=== PATIENT | female | born 1940 | race Caucasian/White ===

== ENCOUNTER 2016-09-01 05:39 | Day surgery (SDC) | payer MEDICARE, OTHER ==
--- NOTE | ~2016-09-01 | EGD ---
EGD REPORT [facility] [address] [place] [address] NAME: REYNA ALANIZ : 38 STATUS : REG [facility]#: [id number] AGE: 75 ADM/REG DATE : 09/01/16 MR#: [id number] REPORT SERV DATE: 09/01/16 DICTATED BY: ADAM POLLARD DATE: 09/01/16 REPORT STATUS : Draft TRANSCRIBED BY: [employer] DATE: 09/01/16 Endoscopy Center Patient Name: Reyna Alaniz Date of : 1940 Attending MD: ADAM POLLARD MD Procedure Date No Time: 09/01/2016 Procedure: Upper GI endoscopy Indications: Epigastric abdominal pain, Heartburn, Suspected esophageal reflux Referring MD: Selvin Miranda Medicines: as per anesthesia Complications: No immediate complications. Procedure: After obtaining informed consent, the endoscope was passed under direct vision. Throughout the procedure, the patient's blood pressure, pulse, and oxygen saturations were monitored continuously. The GIF [id number] [id number] was introduced through the mouth, and advanced to the third part of duodenum. The upper GI endoscopy was accomplished without difficulty. The patient tolerated the procedure. Findings: The examined esophagus was normal. Localized mild inflammation characterized by erythema was found in the gastric antrum. Biopsies were taken with a cold forceps for histology. The cardia and gastric fundus were normal on retroflexion. The examined duodenum was normal. Impression: - Normal esophagus. - Gastritis. Biopsied. - Normal examined duodenum. Recommendation: - Await pathology results. - Follow an antireflux regimen. - Continue present medications. Procedure Code(s): --- Professional --- 09288, Esophagogastroduodenoscopy, flexible, transoral; with biopsy, single or multiple Diagnosis Code(s): --- Professional --- K29.70, Gastritis, unspecified, without bleeding R10.13, Epigastric pain R12, Heartburn EGD REPORT [facility] [address] [place] [address] NAME: REYNA ALANIZ : [birth year] STATUS : REG [facility] [place] PAT#: [id number] AGE: 75 ADM/REG DATE : 09/01/16 MR#: [id number] REPORT SERV DATE: 09/01/16 DICTATED BY: ADAM POLLARD. DATE: 09/01/16 REPORT STATUS : Draft TRANSCRIBED BY: [employer] DATE: 09/01/16 CPT copyright 2013 [employer]. All rights reserved. The codes documented in this report are preliminary and upon certified medical records coder review may be revised to meet current compliance requirements. ADAM POLLARD MD 09/01/2016 7:25 AM This report has been signed electronically. Number of Addenda: 0 Note Initiated On: 09/01/2016 7:02 AM Scope Withdrawal Time 0 hours 0 minutes 0 seconds [address] [id number]
--- NOTE | ~2016-09-01 | EGD ---
EGD REPORT [facility] [address] [place] [address] NAME: REYNA ALANIZ : [birth year] STATUS : REG [facility]#: [id number] AGE: 75 ADM/REG DATE : 09/01/16 MR#: [id number] REPORT SERV DATE: 09/01/16 DICTATED BY: ADAM POLLARD DATE: 09/01/16 REPORT STATUS : Draft [facility]: [facility] DATE: 09/01/16 Endoscopy Center Patient Name: Reyna Alaniz Date of : 1940 Attending MD: ADAM POLLARD MD Procedure Date No Time: 09/01/2016 Procedure: Colonoscopy Indications: High risk colon cancer surveillance: Personal history of colonic polyps, FH of Colon Cancer - 1st degree relative, FH of Colon Cancer -distant relative Referring MD: Selvin Miranda Medicines: as per anesthesia Complications: No immediate complications. Procedure: After I obtained informed consent, the scope was passed under direct vision. Throughout the procedure, the patient's blood pressure, pulse, and oxygen saturations were monitored continuously. The PCF [id number] was introduced through the anus and advanced to the cecum, identified by appendiceal orifice and ileocecal valve. The colonoscopy was performed without difficulty. The patient tolerated the procedure. The quality of the bowel preparation was fair. Findings: The perianal and digital rectal examinations were normal. A few small and large-mouthed diverticula were found in the sigmoid colon, in the descending colon and in the transverse colon. Internal hemorrhoids were found during endoscopy and were mild. Impression: - Diverticulosis in the sigmoid colon, in the descending colon and in the transverse colon. - Internal hemorrhoids. Recommendation: - Continue present medications. Procedure Code(s): --- Professional --- 40186, Colonoscopy, flexible, proximal to splenic flexure; diagnostic, with or without collection of specimen(s) by brushing or washing, with or without colon decompression (separate procedure) Diagnosis Code(s): --- Professional --- K64.8, Other hemorrhoids K57.30, Diverticulosis of large intestine without perforation or abscess without bleeding EGD REPORT [facility] [address] [place] [address] [address] [id number] NAME: REYNA ALANIZ : [birth year] STATUS : REG [facility] PAT#: [id number] AGE: 75 ADM/REG DATE : 09/01/16 MR#: [id number] REPORT SERV DATE: 09/01/16 DICTATED BY: ADAM POLLARD. DATE: 09/01/16 REPORT STATUS : Draft TRANSCRIBED BY: [employer] DATE: 09/01/16 Z86.010, Personal history of colonic polyps Z80.0, Family history of malignant neoplasm of digestive organs CPT copyright 2013 [employer]. All rights reserved. The codes documented in this report are preliminary and upon service dog trainer review may be revised to meet current compliance requirements. ADAM POLLARD MD 09/01/2016 7:52 AM This report has been signed electronically. Number of Addenda: 0 Note Initiated On: 09/01/2016 7:01 AM Scope Withdrawal Time 0 hours 7 minutes 4 seconds [address] [facility] [address] [id number]
[~2016-09-01 05:39] MED LIST: ACET500CAP PO; ADALAT CC90 MG PO; ALBUTEROL5 INH; ASAB PO; ATRONASAL3 NAS; CAT1 PO; COUMADIN4 MG PO; DSS PO; DUONEB INH; EXFORGE 10/320 PO; EXFORGE1 TA3 PO; EYE INJECTION; FLONASE NAS; FLOVENT110 INH; FLOVENT220 INH; FOLIC ACID PO; FOLIC PO; HALF81 PO; HUMALOG SC; HUMALOGPEN SC; HYCODAN1 M1 PO; IMDUR30 PO; IMDUR60 PO; JANTOVEN4 MG PO; KLOR-CON20 MEQ PO; L40 PO; LANTUS SC; LIPITOR PO; LIPITOR40 PO; LOVENOX; LUMIGAN OPH; LUMIGAN2.5 ML OPH; MAGNEBIND PO; MAGOX4 PO; MAX25 PO; MEDROLPAK4 PO; MIRALAXPKT PO; MUCINEX1200 MG PO; MUCINEX600 MG PO; NATURA2 OP; NEXIUM40 PO; OCEAN NAS; P10 PO; P20 PO; PEP20 PO; PROAIR HFA INH; PROVENTSOL INH; PROVHFA INH; SODIUM CHLOR3 %; SPIRIVA INH; SPIRIVA RESPIMAT INH; SYMBICORT 160/41 INH INH; TARKA1 TA1 PO; TEARS NATURA OP; TEARS PLUS OPH; TESS PO; ULTRAM50 PO; VENTOLIN HFA INH; VIBRATAB100 MG PO; X25 PO; X5 PO; XALAT OPH; Z-PAK PO; ZOCOR40 PO
[2016-09-01 06:21] LABS: INTERNATIONAL NORMAL RATI 1.2 UNITS (-); PROTIME (NOT ORD) 14.8 SEC (12.0-14.5)
[2016-12-28] MEDS ORDERED: FOLIC PO (09:59)
[2016-12-28] MEDS ORDERED: LIPITOR40 PO (09:59)
[2016-12-28] MEDS ORDERED: EXFORGE1 TA3 PO (09:59)
[2016-12-28] MEDS ORDERED: X5 PO (10:00)
[2016-12-28] MEDS ORDERED: SYMBICORT 160/41 INH INH (10:00)
[2016-12-28] MEDS ORDERED: NEXIUM40 PO (10:00)
[2016-12-28] MEDS ORDERED: IMDUR30 PO (10:00)
[2016-12-28] MEDS ORDERED: PROAIR HFA INH (10:01)
[2016-12-28] MEDS ORDERED: ALBUTEROL0.083 % INH (10:01)
[2016-12-28] MEDS ORDERED: L40 PO (10:01)
[2016-12-28] MEDS ORDERED: LANTUS SC (10:03)
[2016-12-28] MEDS ORDERED: HUMALOG SC (10:03)
[2016-12-28] MEDS ORDERED: JANTOVEN1 MG PO (10:04)
[2016-12-28] MEDS ORDERED: JANTOVEN4 MG PO (10:04)
[2016-12-28] MEDS ORDERED: LUMIGAN2.5 ML OPH (10:04)
[2017-01-01] MEDS ORDERED: ASAB PO (14:15)
[2017-01-01] MEDS ORDERED: SPIRIVA INH (14:16)
== END 2016-09-01 23:59 | disposition home health service (06) ==
LOC: DMU 05:39
PROVIDERS: Anesthesiology; Internal Medicine Gastroenterology
PROC: 0DB68ZX Excision of Stomach, Via Natural or Artificial Opening Endoscopic, Diagnostic (ICD-10-PCS; principal; 2016-09-01 07:00)
PROC: 0DJD8ZZ Inspection of Lower Intestinal Tract, Via Natural or Artificial Opening Endoscopic (ICD-10-PCS; 2016-09-01 07:00)
DX: Z12.11 Encounter for screening for malignant neoplasm of colon (principal); K57.30 Diverticulosis of large intestine without perforation or abscess without bleeding; K64.8 Other hemorrhoids; E66.01 Morbid (severe) obesity due to excess calories; E11.9 Type 2 diabetes mellitus without complications; I11.0 Hypertensive heart disease with heart failure; E78.00 Pure hypercholesterolemia, unspecified; I48.91 Unspecified atrial fibrillation; I27.2 Other secondary pulmonary hypertension; I50.9 Heart failure, unspecified; J44.9 Chronic obstructive pulmonary disease, unspecified; Z86.010 Personal history of colon polyps; J45.909 Unspecified asthma, uncomplicated; K21.9 Gastro-esophageal reflux disease without esophagitis; K29.70 Gastritis, unspecified, without bleeding; Z80.0 Family history of malignant neoplasm of digestive organs
CPT/HCPCS: 43239; G0105; 82962; 85610; 88305

== ENCOUNTER 2016-09-04 15:42 | Emergency (ER) | payer MEDICARE, OTHER ==
[2016-09-04 16:38] LABS: BASOPHILS 0.2 %; BASOPHILS ABSOLUTE 0.03 10/3/uL (0.0-0.16); EOSINOPHILS 0.3 %; EOSINOPHILS ABSOLUTE 0.04 10/3/uL (0.0-0.53); ER CBC TAT 0 Hrs 11 Mins; HEMOGLOBIN 13.4 g/dL (12.0-16.0); IMMATURE GRANULOCYTES 0.5 %; IMMATURE GRANULOCYTES ABSOLUTE 0.07 10/3/uL (0.0-0.11); LYMPHOCYTES 13.5 %; LYMPHOCYTES ABSOLUTE 1.89 10/3/uL (0.67-4.30); MEAN CORPUS HGB CONC 33.3 g/dL (32.0-36.0); MEAN CORPUSCULAR HEMOGLOB 28.3 pg (26.0-34.0); MEAN PLATELET VOLUME 10.8 fL (9.2-13.0); MONOCYTES 5.6 %; MONOCYTES ABSOLUTE 0.78 10/3/uL (0.21-1.20); NEUTROPHILS 79.9 %; PLATELET COUNT 270 10/3/uL (150-400); RBC DISTRIBUTION WIDTH 14.8 % (12.0-16.0); RED CELL COUNT 4.74 10/6/uL (4.0-5.6)
[2016-09-04 16:40] LABS: HEMATOCRIT 40.3 % (36.0-48.0); MANUAL DIFF NO %
[2016-09-04 16:42] LABS: INTERNATIONAL NORMAL RATI 1.3 UNITS (-); PARTIAL THROMBO TIME 35.1 SEC (22.5-37.2); PROTIME (NOT ORD) 15.7 SEC (12.0-14.5)
[2016-09-04 16:49] LABS: BUN (BLOOD UREA NITROGEN) 21 MG/DL (6-23); CALCIUM, SERUM 9.1 MG/DL (8.5-10.4); CHEST PAIN PROFILE TAT 0 Hrs 22 Mins; CHLORIDE, SERUM 101 MMOL/L (96-112); CO2 (CARBON DIOXIDE) 28 MMOL/L (24-34); CREATININE 1.03 MG/DL (0.55-1.02); GFR AFRICAN AMERICAN 61 ML/MIN (>=60); GFR NON AFRICAN AMERICAN 53 ML/MIN (>=60); GLUCOSE, SERUM 167 MG/DL (60-99); POTASSIUM, SERUM 3.5 MMOL/L (3.5-5.3); SODIUM, SERUM 141 MMOL/L (135-148); TROPONIN I <0.02 NG/ML (<0.05)
[2016-12-28] MEDS ORDERED: EXFORGE1 TA3 PO (09:59)
[2016-12-28] MEDS ORDERED: LIPITOR40 PO (09:59)
[2016-12-28] MEDS ORDERED: FOLIC PO (09:59)
[2016-12-28] MEDS ORDERED: X5 PO (10:00)
[2016-12-28] MEDS ORDERED: NEXIUM40 PO (10:00)
[2016-12-28] MEDS ORDERED: IMDUR30 PO (10:00)
[2016-12-28] MEDS ORDERED: SYMBICORT 160/41 INH INH (10:00)
[2016-12-28] MEDS ORDERED: L40 PO (10:01)
[2016-12-28] MEDS ORDERED: ALBUTEROL0.083 % INH (10:01)
[2016-12-28] MEDS ORDERED: PROAIR HFA INH (10:01)
[2016-12-28] MEDS ORDERED: LANTUS SC (10:03)
[2016-12-28] MEDS ORDERED: HUMALOG SC (10:03)
[2016-12-28] MEDS ORDERED: JANTOVEN1 MG PO (10:04)
[2016-12-28] MEDS ORDERED: LUMIGAN2.5 ML OPH (10:04)
[2016-12-28] MEDS ORDERED: JANTOVEN4 MG PO (10:04)
[2017-01-01] MEDS ORDERED: ASAB PO (14:15)
[2017-01-01] MEDS ORDERED: SPIRIVA INH (14:16)
== END 2016-09-04 22:40 | disposition home or self-care (01) ==
LOC: ER 15:42
PROVIDERS: Hospitalist
DX: S30.1XXA Contusion of abdominal wall, initial encounter (principal); E11.65 Type 2 diabetes mellitus with hyperglycemia; J44.9 Chronic obstructive pulmonary disease, unspecified; I10 Essential (primary) hypertension; I50.9 Heart failure, unspecified; I48.91 Unspecified atrial fibrillation; K21.9 Gastro-esophageal reflux disease without esophagitis; K58.9 Irritable bowel syndrome, unspecified; Z88.1 Allergy status to other antibiotic agents; Z79.01 Long term (current) use of anticoagulants; Z79.899 Other long term (current) drug therapy; X58.XXXA Exposure to other specified factors, initial encounter
CPT/HCPCS: 71020; 74176; 80048; 83735; 83880; 84484; 85025; 85610; 85730; 93005; 99285; A9270-GY

== ENCOUNTER 2016-10-30 11:21 | Emergency (ER) | payer MEDICARE, OTHER ==
[2016-10-30 11:43] LABS: BASOPHILS 0.3 %; BASOPHILS ABSOLUTE 0.03 10/3/uL (0.0-0.16); EOSINOPHILS 1.5 %; EOSINOPHILS ABSOLUTE 0.17 10/3/uL (0.0-0.53); ER CBC TAT 0 Hrs 05 Mins; HEMATOCRIT 38.8 % (36.0-48.0); HEMOGLOBIN 12.7 g/dL (12.0-16.0); IMMATURE GRANULOCYTES 0.7 %; IMMATURE GRANULOCYTES ABSOLUTE 0.08 10/3/uL (0.0-0.11); LYMPHOCYTES 15.2 %; LYMPHOCYTES ABSOLUTE 1.72 10/3/uL (0.67-4.30); MANUAL DIFF NO %; MEAN CORPUS HGB CONC 32.7 g/dL (32.0-36.0); MEAN CORPUSCULAR HEMOGLOB 28.3 pg (26.0-34.0); MEAN CORPUSCULAR VOLUME 86.4 fL (80-100); MEAN PLATELET VOLUME 10.5 fL (9.2-13.0); MONOCYTES 6.8 %; MONOCYTES ABSOLUTE 0.77 10/3/uL (0.21-1.20); NEUTROPHILS 75.5 %; NEUTROPHILS ABSOLUTE 8.55 10/3/uL (2.02-8.40); PLATELET COUNT 291 10/3/uL (150-400); RBC DISTRIBUTION WIDTH 14.4 % (12.0-16.0); RED CELL COUNT 4.49 10/6/uL (4.0-5.6); WHITE BLOOD CELLS 11.3 10/3/uL (4.5-10.5)
[2016-10-30 11:49] LABS: INTERNATIONAL NORMAL RATI 2.6 UNITS (-)
[2016-10-30 11:50] LABS: PROTIME (NOT ORD) 27.6 SEC (12.0-14.5)
[2016-10-30 11:59] LABS: A/G RATIO 0.9 (0.7-1.9); ALBUMIN 3.7 G/DL (3.5-5.0); CALCIUM, SERUM 9.4 MG/DL (8.5-10.4); CHLORIDE, SERUM 105 MMOL/L (96-112); CO2 (CARBON DIOXIDE) 30 MMOL/L (24-34); CREATININE 1.13 MG/DL (0.55-1.02); GFR AFRICAN AMERICAN 55 ML/MIN (>=60); GFR NON AFRICAN AMERICAN 47 ML/MIN (>=60); GLUCOSE, SERUM 184 MG/DL (60-99); POTASSIUM, SERUM 4.1 MMOL/L (3.5-5.3); SGOT(AST) 14 U/L (5-40); SGPT(ALT) 20 U/L (5-65); SODIUM, SERUM 142 MMOL/L (135-148); TOTAL BILIRUBIN 0.4 MG/DL (0-1.2); TOTAL PROTEIN 7.7 G/DL (6.0-8.5)
[2016-10-30 12:00] LABS: ALKALINE PHOSPHATASE 101 U/L (45-117); BUN (BLOOD UREA NITROGEN) 29 MG/DL (6-23)
[2016-12-28] MEDS ORDERED: EXFORGE1 TA3 PO (09:59)
[2016-12-28] MEDS ORDERED: FOLIC PO (09:59)
[2016-12-28] MEDS ORDERED: LIPITOR40 PO (09:59)
[2016-12-28] MEDS ORDERED: IMDUR30 PO (10:00)
[2016-12-28] MEDS ORDERED: NEXIUM40 PO (10:00)
[2016-12-28] MEDS ORDERED: X5 PO (10:00)
[2016-12-28] MEDS ORDERED: SYMBICORT 160/41 INH INH (10:00)
[2016-12-28] MEDS ORDERED: ALBUTEROL0.083 % INH (10:01)
[2016-12-28] MEDS ORDERED: PROAIR HFA INH (10:01)
[2016-12-28] MEDS ORDERED: L40 PO (10:01)
[2016-12-28] MEDS ORDERED: LANTUS SC (10:03)
[2016-12-28] MEDS ORDERED: HUMALOG SC (10:03)
[2016-12-28] MEDS ORDERED: JANTOVEN1 MG PO (10:04)
[2016-12-28] MEDS ORDERED: JANTOVEN4 MG PO (10:04)
[2016-12-28] MEDS ORDERED: LUMIGAN2.5 ML OPH (10:04)
[2017-01-01] MEDS ORDERED: ASAB PO (14:15)
[2017-01-01] MEDS ORDERED: SPIRIVA INH (14:16)
== END 2016-10-30 13:31 | disposition home or self-care (01) ==
LOC: ER 11:21
PROVIDERS: Emergency Medicine
DX: M79.662 Pain in left lower leg (principal); M79.81 Nontraumatic hematoma of soft tissue; J06.9 Acute upper respiratory infection, unspecified; E11.9 Type 2 diabetes mellitus without complications; Z85.3 Personal history of malignant neoplasm of breast; K21.9 Gastro-esophageal reflux disease without esophagitis; I11.0 Hypertensive heart disease with heart failure; I50.9 Heart failure, unspecified; J44.9 Chronic obstructive pulmonary disease, unspecified; I48.91 Unspecified atrial fibrillation; Z88.1 Allergy status to other antibiotic agents; Z88.5 Allergy status to narcotic agent; Z88.8 Allergy status to other drugs, medicaments and biological substances; Z79.899 Other long term (current) drug therapy; Z79.4 Long term (current) use of insulin; Z79.01 Long term (current) use of anticoagulants
CPT/HCPCS: 71010; 80053; 85025; 85610; 93971; 99284

== ENCOUNTER 2017-03-09 06:50 | Emergency (ER) | payer MEDICARE, OTHER ==
[~2017-03-09] VITALS: Ht 163 cm; Wt 118.4 kg
[~2017-03-09 06:50] MED LIST changes: +ALBUTEROL0.083 % INH; +JANTOVEN1 MG PO
[2017-03-09 08:29] LABS: BASOPHILS 0.5 %; BASOPHILS ABSOLUTE 0.05 10/3/uL (0.0-0.16); EOSINOPHILS 1.6 %; EOSINOPHILS ABSOLUTE 0.18 10/3/uL (0.0-0.53); HEMATOCRIT 39.7 % (36.0-48.0); IMMATURE GRANULOCYTES 0.4 %; IMMATURE GRANULOCYTES ABSOLUTE 0.04 10/3/uL (0.0-0.11); LYMPHOCYTES 13.7 %; LYMPHOCYTES ABSOLUTE 1.52 10/3/uL (0.67-4.30); MEAN CORPUS HGB CONC 32.7 g/dL (32.0-36.0); MEAN CORPUSCULAR HEMOGLOB 28.6 pg (26.0-34.0); MEAN CORPUSCULAR VOLUME 87.3 fL (80-100); MEAN PLATELET VOLUME 10.6 fL (9.2-13.0); MONOCYTES 8.7 %; MONOCYTES ABSOLUTE 0.96 10/3/uL (0.21-1.20); NEUTROPHILS 75.1 %; NEUTROPHILS ABSOLUTE 8.33 10/3/uL (2.02-8.40); PLATELET COUNT 291 10/3/uL (150-400); RBC DISTRIBUTION WIDTH 13.6 % (12.0-16.0); RED CELL COUNT 4.55 10/6/uL (4.0-5.6); WHITE BLOOD CELLS 11.1 10/3/uL (4.5-10.5)
[2017-03-09 08:30] LABS: MANUAL DIFF NO %
[2017-03-09 08:37] LABS: ASCORBIC ACID (UR NOT ORDER) NEG (NEG); BILIRUBIN, URINE NEGATIVE (NEG); ER URINALYSIS TAT 0 Hrs 14 Mins; KETONE, URINE NEGATIVE (NEG); LEUKOCYTE ESTERASE(NOT OR TRACE (NEG); NITRITE (URINE) NEG (NEG); WBC (NOT ORDERED) (RFLEX) 4 (0-5)
[2017-03-09 08:49] LABS: A/G RATIO 0.9 (0.7-1.9); ALBUMIN 3.6 G/DL (3.5-5.0); ALKALINE PHOSPHATASE 98 U/L (45-117); BUN (BLOOD UREA NITROGEN) 18 MG/DL (6-23); CALCIUM, SERUM 9.4 MG/DL (8.5-10.4); CHLORIDE, SERUM 101 MMOL/L (96-112); CO2 (CARBON DIOXIDE) 28 MMOL/L (24-34); CREATININE 1.08 MG/DL (0.55-1.02); GFR AFRICAN AMERICAN 57 ML/MIN (>=60); GFR NON AFRICAN AMERICAN 49 ML/MIN (>=60); GLOBULIN 3.9 G/DL (2.5-4.1); GLUCOSE, SERUM 164 MG/DL (60-99); POTASSIUM, SERUM 3.7 MMOL/L (3.5-5.3); SGOT(AST) 20 U/L (5-40); SGPT(ALT) 23 U/L (5-65); SODIUM, SERUM 137 MMOL/L (135-148); TOTAL BILIRUBIN 0.5 MG/DL (0-1.2); TOTAL PROTEIN 7.5 G/DL (6.0-8.5)
[2017-03-09 08:53] LABS: LACTATE 2.5 MMOL/L (0.3-2.4)
== END 2017-03-09 10:45 | disposition home or self-care (01) ==
LOC: ER 06:50
PROVIDERS: Nurse Practitioner Family
DX: M54.32 Sciatica, left side (principal); J44.9 Chronic obstructive pulmonary disease, unspecified; Z87.01 Personal history of pneumonia (recurrent); G47.30 Sleep apnea, unspecified; Z86.73 Personal history of transient ischemic attack (TIA), and cerebral infarction without residual deficits; I13.0 Hypertensive heart and chronic kidney disease with heart failure and stage 1 through stage 4 chronic kidney disease, or unspecified chronic kidney disease; N18.9 Chronic kidney disease, unspecified; I50.9 Heart failure, unspecified; K58.9 Irritable bowel syndrome, unspecified; E11.22 Type 2 diabetes mellitus with diabetic chronic kidney disease; Z85.3 Personal history of malignant neoplasm of breast; E11.40 Type 2 diabetes mellitus with diabetic neuropathy, unspecified; Z90.710 Acquired absence of both cervix and uterus; E66.01 Morbid (severe) obesity due to excess calories; Z90.10 Acquired absence of unspecified breast and nipple; Z95.0 Presence of cardiac pacemaker; I48.91 Unspecified atrial fibrillation; Z90.89 Acquired absence of other organs; Z88.1 Allergy status to other antibiotic agents; Z88.5 Allergy status to narcotic agent; Z88.8 Allergy status to other drugs, medicaments and biological substances; Z91.048 Other nonmedicinal substance allergy status; Z88.6 Allergy status to analgesic agent; Z79.899 Other long term (current) drug therapy; Z79.4 Long term (current) use of insulin; Z79.82 Long term (current) use of aspirin; Z79.01 Long term (current) use of anticoagulants
CPT/HCPCS: 74176; 80053; 81001; 83605; 83690; 85025; 87040; 96374; 99284; J2800